=== PATIENT | female | born 1980 | race Two or more races ===

== ENCOUNTER 2021-09-14 15:43 | Emergency (ER) | payer OTHER ==
[~2021-09-14] VITALS: Ht 157.5 cm; Wt 97.1 kg
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
[2021-09-14] MEDS ORDERED: ACETAMINOPHEN ES 500 MG TABLET ONE (16:27)
[2021-09-14] MEDS ORDERED: IBUPROFEN 600 MG TABLET ONE (16:27)
[2021-09-14] MEDS ORDERED: IBUPROFEN 600 MG TABLET PO ONE (16:30)
[2021-09-14] MEDS ORDERED: ACETAMINOPHEN ES 500 MG TABLET PO ONE (16:30)
--- NOTE | 2021-09-14 17:39 | NUR ---
PT TAKEN TO CT
[2021-09-14] MEDS ORDERED: HYDR-3972 PO (18:47)
[2021-09-14] MEDS ORDERED: IBUP-1957 PO (18:47)
[2021-09-14 19:01] VITALS: BP 134/81
== END 2021-09-14 19:02 | disposition home or self-care (01) ==
LOC: ER 15:43
DX: S30.0XXA Contusion of lower back and pelvis, initial encounter (principal); S09.8XXA Other specified injuries of head, initial encounter; R51.9 Headache, unspecified; E11.9 Type 2 diabetes mellitus without complications; J45.909 Unspecified asthma, uncomplicated; F17.200 Nicotine dependence, unspecified, uncomplicated; E66.01 Morbid (severe) obesity due to excess calories; Z68.39 Body mass index [BMI] 39.0-39.9, adult; W18.09XA Striking against other object with subsequent fall, initial encounter; Y93.89 Activity, other specified; Y92.89 Other specified places as the place of occurrence of the external cause; Y99.8 Other external cause status
CPT/HCPCS: 70450-TC; 72131-TC